=== PATIENT | female | born 1995 | race American Indian/Alaskan Native ===

== ENCOUNTER → 2019-09-13 10:24 | Outpatient (BNVA) | payer OTHER, SELFPAY | PROVIDERS: Family Provider Nurse Practitioner Family; PCP Nurse Practitioner Family; Visit Provider Nurse Practitioner | DX: N39.0 Urinary tract infection, site not specified (principal) | CPT/HCPCS: 81003 ==

== ENCOUNTER 2020-03-09 19:34 | Emergency (ER) | payer OTHER, SELFPAY ==
[2020-03-09 19:49] VITALS: BP 122/70; PULSE 87; RESP 14; TEMP 36.7; O2SAT 98; BMI 22.3
--- NOTE | 2020-03-09 21:41 | W.ED.SKABFB ---
HPI - Skin/Abscess/Foreign Bdy General: Chief complaint: Skin/Abscess/Foreign Body Stated complaint: rash Time Seen by Provider: 03/09/20 21:38 Source: patient and family Mode of arrival: ambulatory Limitations: no limitations History of Present Illness: HPI narrative: Patient is a 24-year-old female presents to ED today along with her mother for complaints of a bilateral lower extremity burning/pruritic rash that has been present over the past 3 weeks. Patient tells [place] poison bobbi. Patient was initially seen in urgent care facility and prescribed a 5-day course of non-tapering 40 mg prednisone. Patient believes she noticed some mild improvement however rash never fully subsided. She was seen again at an urgent care facility and prescribed the same 5-day course. Patient reports rash is still failed to improve so she returned yet again and was placed on cephalexin and mupirocin. Patient states she has been on the cephalexin for approximately 2 to 3 days. She is now complaining of a diffuse rash throughout her trunk/torso and face. She states she feels itchy all over . Patient denies any systemic complaints such as fevers/chills, body aches, malaise/fatigue, headache, neck pain. She has had no recent tick bites. Patient cannot think of any other environmental, household, chemical exposures. complaint: rash Onset (ago): week(s) Tetanus up to date: yes Location: generalized Severity: moderate Quality: burning and pruritic Pain Consistency: constant Relieving factors: none Exacerbating factors: none Associated symptoms: Deny chills, fever(s), nausea or vomiting Treatments prior to arrival: corticosteroid and antibiotic Review of Systems Const: Denies: fever(s), chills, body aches, fatigue or malaise Eyes: Denies: change in vision ENMT: Denies: throat pain Card: Denies: chest pain Resp: Denies: dyspnea GI: Denies: abdominal pain, nausea or vomiting Musc: Denies: neck pain or back pain Skin/Breast: Reports: rash and pruritus Neuro: Denies: headache(s), numbness in extremities, weakness in extremities or sensory changes PFS ED PFSH: Social History Smoking and tobacco status: never smoked Physical Exam Const: COMMON NORMALS: no acute distress, patient oriented x3, no limitations and alert ORIENTATION/CONSCIOUSNESS: Yes oriented to person, Yes oriented to place and Yes oriented to time HENMT: COMMON NORMALS: normocephalic and atraumatic HEAD & SCALP: normocephalic and atraumatic Eye: COMMON NORMALS: Equal, round and reactive pupils present, EOMs intact bilaterally, conjunctivae normal and no scleral icterus CONJUNCTIVA: Yes conjunctivae normal PUPIL: Yes Equal, round and reactive pupils present Resp: COMMON NORMALS: normal respiratory effort Extremity: COMMON NORMALS: normal to inspection and full ROM NARRATIVE EXTREMITY EXAM: see skin assessment GENERAL: Yes normal exam except as noted Neuro: COMMON NORMALS: patient oriented x3 SENSORIUM/ORIENTATION: Yes alert, Yes oriented to person, Yes oriented to place and Yes oriented to time Skin: OTHER: patient has several large erythematous edematous plaque like lesions throughout her LEs; some lesions appear older/dried while others appear more acute; some of the lesions do contain small vesicles; she has an area to her R ankle where an ankle bracelet was present and there is a clear delineation of where the rash did not affect this area; pt with diffuse papular rash to anterior truck/chest Course Vital Signs: Vital signs: Vital Signs Temperature 98.1 F 03/09/20 19:49 Pulse Rate 75 03/09/20 21:50 Respiratory Rate 15 03/09/20 21:50 Blood Pressure 133/91 03/09/20 21:50 Pulse Oximetry 97 03/09/20 21:50 MDM - Skin/Abscess/Foreign Bdy MDM Narrative: Medical decision making narrative: Will have patient discontinue cephalexin as I do not feel this is anything bacterial in nature and there are no signs of secondary infection at this time. Rash does look suspicious for a contact dermatitis. I will place patient on a long 15-day tapering steroid dose in hopes that this may help better than the 5-day course she has been on previously. With this being patient's fourth medical visit for the rash I will go ahead and place her information with case management try to get her set up with Dr. Connors, dermatology for her consultation. Return to ED precautions given. Discharge Plan Discharge Patient Disposition: Home Clinical Impression: Contact dermatitis and eczema due to plant Condition: Stable Prescriptions: New prednisone 10 mg tablet 10 mg PO DAILY 15 Days Qty: 45 RF: 0 Discontinued cephalexin 500 mg capsule 500 mg PO QID 7 Days Qty: 28 RF: 0 No Action mupirocin 2 % ointment 1 applic TOPICAL TID 7 Days Qty: 15 RF: 0 triamcinolone acetonide 0.1 % cream 1 applic TOPICAL BID Qty: 80 RF: 0 Discharge Orders: Discharge Order (Routine); Ordered 03/09/20 Ordered By: Anca Lima Referrals: Karely Corley FNP-C [Primary Care Provider] - Patient Instructions: Dermatitis (Contact), Contact Dermatitis (ED), Poison Bobbi (ED) Activity Restrictions/Additional Instructions: You may discontinue the cephalexin. We will place you on a 15-day steroid taper. As discussed I will place her information with case management so they may work on getting you an appointment with dermatology for further follow-up. Discharge Date/Time: 03/09/20 22:57 Coding Level of Care Code ED Automotive Welder for Kelli Boone
[2020-03-09 21:50] VITALS: BP 133/91; PULSE 75; RESP 15; O2SAT 97
[2020-03-09] MEDS: diphenhydrAMINE 50 mg/mL SDV 1mL IVP (22:11)
[2020-03-09] MEDS: famotidine 20 mg/2 mL INJ 40 MG IVP (22:12)
[2020-03-09 22:57] VITALS: BP 121/81; PULSE 88; RESP 16; O2SAT 97
--- NOTE | 2020-03-10 10:21 | PC.SOCIAL ---
Called patient regarding ED referral for Dermatology. Left message. Mother returned call Michelle and we discussed the current appt is for 05/12/2020 at 2:30 pm however, this nurse has asked that she be put on a wait list for any cancellations as well. Was also told that if patients provider can call to see if patient can get in sooner they may be able to move it up. Per Mother cant wait this long. [place] [facility] [place] to see if a provider to provider can be accomodated through them. She verbalized understanding and will see if she can reach out to them.
--- NOTE | 2020-03-20 14:11 | DCPLANNER ---
Patient had a follow up appointment scheduled for 03.12.20 after ED visit with dermatology - patient did attend appointment.
== END 2020-03-09 22:57 | disposition home or self-care (01) ==
PROVIDERS: Emergency Provider Physician Assistant; PCP Nurse Practitioner Family
DX: L25.5 Unspecified contact dermatitis due to plants, except food (principal)
CPT/HCPCS: 12345; 96374; 96375; 99281; 99283; J1200; J2930; J3490

== ENCOUNTER → 2020-03-12 16:01 | Outpatient (BNVA) | payer OTHER, SELFPAY | PROVIDERS: PCP Nurse Practitioner Family; Referring Provider Nurse Practitioner Family; Visit Provider Dermatology | DX: R21 Rash and other nonspecific skin eruption (principal); L30.2 Cutaneous autosensitization; L25.5 Unspecified contact dermatitis due to plants, except food | CPT/HCPCS: 99203; 99204 ==

== ENCOUNTER → 2020-03-13 11:38 | Outpatient (BNVA) | payer OTHER, SELFPAY | PROVIDERS: PCP Nurse Practitioner Family; Visit Provider Dermatology | DX: R21 Rash and other nonspecific skin eruption (principal); L30.2 Cutaneous autosensitization; L25.5 Unspecified contact dermatitis due to plants, except food; D48.9 Neoplasm of uncertain behavior, unspecified | CPT/HCPCS: 11104; 88304; 88305; 88312; 99203 ==

== ENCOUNTER → 2021-01-27 10:11 | Outpatient (BNVA) | payer OTHER, SELFPAY | PROVIDERS: PCP Nurse Practitioner Family; Visit Provider Registered Nurse Neonatal Intensive Care | DX: J02.9 Acute pharyngitis, unspecified (principal); H66.90 Otitis media, unspecified, unspecified ear | CPT/HCPCS: 87880 ==

== ENCOUNTER → 2023-01-11 18:06 | Outpatient (BNVA) | payer OTHER, SELFPAY | PROVIDERS: PCP Nurse Practitioner Family; Visit Provider Registered Nurse Neonatal Intensive Care | DX: J02.9 Acute pharyngitis, unspecified (principal) | CPT/HCPCS: 87880 ==

== ENCOUNTER → 2023-03-29 13:41 | Outpatient (BNVA) | payer OTHER, SELFPAY | PROVIDERS: PCP Nurse Practitioner Family; Visit Provider Nurse Practitioner | DX: J02.9 Acute pharyngitis, unspecified (principal); J03.80 Acute tonsillitis due to other specified organisms; B96.89 Other specified bacterial agents as the cause of diseases classified elsewhere | CPT/HCPCS: 87880 ==

== ENCOUNTER → 2023-07-14 09:15 | Outpatient (BNVA) | payer OTHER, SELFPAY | PROVIDERS: PCP Nurse Practitioner Family; Visit Provider Nurse Practitioner Women's Health | DX: Z32.00 Encounter for pregnancy test, result unknown (principal) | CPT/HCPCS: 81025 ==

== ENCOUNTER → 2023-07-27 10:22 | Outpatient (BNVA) | payer OTHER, MEDICAID, SELFPAY | PROVIDERS: PCP Nurse Practitioner Family; Visit Provider Obstetrics & Gynecology | DX: Z36.87 Encounter for antenatal screening for uncertain dates (principal) | CPT/HCPCS: 76817 ==

== ENCOUNTER → 2023-08-10 13:30 | Outpatient (BNVA) | payer OTHER, MEDICAID, SELFPAY | PROVIDERS: PCP Nurse Practitioner Family; Visit Provider Obstetrics & Gynecology | DX: Z34.90 Encounter for supervision of normal pregnancy, unspecified, unspecified trimester (principal) | CPT/HCPCS: 80307; 84315; 87086 ==

== ENCOUNTER → 2023-08-30 15:30 | Outpatient (BNVA) | payer OTHER, SELFPAY | PROVIDERS: PCP Nurse Practitioner Family; Visit Provider Obstetrics & Gynecology | DX: Z34.90 Encounter for supervision of normal pregnancy, unspecified, unspecified trimester (principal) | CPT/HCPCS: 85025; 86592; 86762; 86803; 86850; 86900; 87086; 87340; 87806 ==

== ENCOUNTER → 2023-10-31 14:33 | Outpatient (BNVA) | payer OTHER, SELFPAY | PROVIDERS: PCP Nurse Practitioner Family; Visit Provider Obstetrics & Gynecology | DX: Z34.80 Encounter for supervision of other normal pregnancy, unspecified trimester (principal) | CPT/HCPCS: 76805 ==

== ENCOUNTER → 2023-11-28 15:38 | Outpatient (BNVA) | payer OTHER, MEDICAID, SELFPAY | PROVIDERS: PCP Nurse Practitioner Family; Visit Provider Obstetrics & Gynecology | DX: Z34.82 Encounter for supervision of other normal pregnancy, second trimester (principal) | CPT/HCPCS: 76816; 84315 ==

== ENCOUNTER 2024-01-02 09:42 | Oncology outpatient (recurring) (ONCR) | payer OTHER, MEDICAID, SELFPAY ==
[2024-01-02 11:18] VITALS: BP 94/54; PULSE 76; RESP 16; TEMP 36.3; O2SAT 99
[2024-01-02] MEDS: rho(d) immune globulin 1,500 unit Syringe 1500 UNIT IM (11:24)
[2024-01-02 11:44] VITALS: BP 99/50; PULSE 76; RESP 18; TEMP 36.6; O2SAT 98
== END 2024-01-13 23:59 | disposition home or self-care (01) ==
PROVIDERS: PCP Nurse Practitioner Family; Visit Provider Family Medicine
DX: O26.893 Other specified pregnancy related conditions, third trimester (principal); Z67.91 Unspecified blood type, Rh negative
CPT/HCPCS: 36415; 86850; 86900; 96372; J2790

== ENCOUNTER 2024-02-26 10:13 | Outpatient (CLI) | payer OTHER, MEDICAID, SELFPAY ==
[2024-02-26 10:15] VITALS: BMI 27.8
[2024-02-26 10:31] VITALS: BP 132/79; PULSE 82
[2024-02-26 10:53] VITALS: BP 121/62; PULSE 71
[2024-02-26 11:08] VITALS: BP 139/78; PULSE 83
[2024-02-26 11:24] VITALS: BP 116/58; PULSE 75
[2024-02-26 11:26] LABS: Actim Prom Negative
== END 2024-02-26 11:35 | disposition home or self-care (01) ==
LOC: OPOB 10:17 → OBGYN 10:18
PROVIDERS: PCP Nurse Practitioner Family; Visit Provider Family Medicine
DX: O26.899 Other specified pregnancy related conditions, unspecified trimester (principal); Z3A.00 Weeks of gestation of pregnancy not specified; N89.8 Other specified noninflammatory disorders of vagina
CPT/HCPCS: 83986; 84112

== ENCOUNTER 2024-03-15 22:46 | Inpatient (IN) | payer OTHER, MEDICAID, SELFPAY ==
[2024-03-15 21:35] VITALS: BMI 27.9
[2024-03-15 21:50] VITALS: BP 121/69; PULSE 72
[2024-03-15 22:06] VITALS: BP 114/53; PULSE 71
[2024-03-15 22:11] VITALS: RESP 17
[2024-03-15 22:38] LABS: Basophils # 0.1 10^3/uL (0.0-0.1); Basophils % 0.4 %; Eosinophils # 0.1 10^3/uL (0.0-0.8); Eosinophils % 0.6 %; Hematocrit 31.7 % (36-47); Lymphocytes # 3.1 10^3/uL (0.8-4.8); Lymphocytes % 16.8 %; Mean Corpuscular HGB Conc 34.4 g/dL (30-55); Mean Corpuscular Hemoglobin 30.9 pg (27-33); Mean Corpuscular Volume 89.8 fl (85-98); Mean Platelet Volume 10.2 fL (7.4-10.4); Monocytes # 1.2 10^3/uL (0.2-0.9); Monocytes % 6.5 %; Neutrophils # 13.57 10^3/uL (1.8-7.7); Neutrophils % 74.3 %; Nucleated Red Blood Cells % 0 %; Platelet Count 322 10^3/cmm (157-399); Red Blood Count 3.53 10^6/uL (3.85-5.65); Red Cell Distribution Width 13.5 % (12.1-15.1); White Blood Count 18.28 10^3/uL (3.29-11.43)
[2024-03-15] MEDS: lactated ringers 1,000 ML 999 ML IV (22:59)
[2024-03-16] VITALS (70 sets, daily range): BP systolic 96–145; BP diastolic 48–86; PULSE 67–121; RESP 16; TEMP 36.2–38.2; O2SAT 97–100
[2024-03-16] MEDS: ROPivacaine premix 200 MG/100 ML PREMIX 13 MG EPIDURAL ×3 (00:32→10:56)
--- NOTE | 2024-03-16 00:37 | ANES.PREANE2 ---
Pre-Anesthetic Assessment Height/Weight: Height 1.63 m Weight 73.936 kg Pulse Resp BP Pulse Ox O2 Del Method 92 17 123/59 97 Room Air 03/16/24 00:30 03/15/24 22:11 03/16/24 00:27 03/16/24 00:30 03/15/24 22:41 Preop Diagnosis: IUP labor epidural Familial anesthetic complications: None Was Beta Killian taken within 24 hours: N/A Was Clonidine taken within 24 hours: N/A Last intake: 2099 Social No alcohol and No tobacco Exam alert, oriented x 3 and clear to auscultation bilaterally Airway Mallampati: Class II Dentition: full History/ROS No significant history except as noted Pulmonary None reported CV/HEM None reported None reported Hepatic None reported GI None reported Metabolic None reported Musc/skel None reported Neuropsych None reported Anesthetic Plan ASA status: 2 Anesthesia: Anesthesia Evaluation and Regional (specify below) (epidural ) Risk of > 500 ml blood loss (7ml/kg in children): Yes, adequate IV access and fluids planned Medications/Allergies Home Medications Medication Instructions Recorded Confirmed Last Taken Type vits no.126-ferrous fum 1 tab PO DAILY 08/10/23 02/26/24 02/26/24 History 28 mg iron-folic acid 800 mcg tablet (Classic ) Allergies Allergy/AdvReac Type Severity Reaction Status Date / Time cephalexin Allergy ALGY-Hives Verified 02/26/24 13:18 Current Medications Generic Name Dose Route Start Last Admin Trade Name Freq PRN Reason Stop Dose Admin Lactated Ringer's 1,000 mls @ 999 mls/hr 03/15/24 22:13 03/15/24 22:59 Lactated Ringers IV 999 mls/hr .Q1H1M PRN Administration See label comments [facility] Anesthesia Medical History Suspected viral infection of skin Family History Denies family history of Diabetes CAD (coronary artery disease) Cancer Social History Smoking and tobacco/nicotine status: never used tobacco/nicotine Quit status (tobacco/nicotine): not considering quitting Second hand smoke exposure: Yes Alcohol intake: current Alcohol intake frequency: few times a week Substance/Drug Use: never Female Reproductive History : 1 Data Anesthesia 03/15/24 22:30 Short CBC 03/15/24 Range/Units 22:30 WBC 18.28 H (3.29-11.43) 10^3/uL Hgb 10.90 L (11.27-16.99) g/dL Hct 31.7 L (36-47) % MCV 89.8 (85-98) fl Plt Count 322 (157-399) 10^3/cmm Neut % (Auto) 74.3 % Neut # (Auto) 13.57 H (1.8-7.7) 10^3/uL Blood Bank 03/15/24 22:30 Blood Type O Negative Rho(D) Type Rh negative Antibody Screen Positive Cardiac Studies: No Data to Display Anesthesia Procedures Epidural Time Out Performed: Yes Consents Signed: Procedure Consent Consent: requested by attending/covering physician, from patient, risks and benefits reviewed and patient agrees to proceed Lumbar Level: L4-L5 Epidural position: sitting Epidural procedure: sterile prep of area, 1% lidocaine to numb the area, 18 g needle, negative for paresthesia passed, neg for paresthesia, test dose given, 1.5% xylocaine 1:200k epi, 0.2% Ropivacaine bolus ml (5), placed PCEA, no systemic response, sterile dressing applied, L.U.D. no apparent complications and 0.2% Ropiavacaine @ mls/hr (13) Additional Comments: ELIZABETH 6cm, catheter easily threaded to 5 cm in the space. VS monitored throughout procedure and remained stable. Pt reporting decreased pain with contractions, educated on AQUACULTURE WORKER.
[2024-03-16] MEDS: dextrose 5%-lactated ringers 1,000 ML 125 ML IV ×2 (01:12→09:12)
[2024-03-16] MEDS: oxytocin 30 UNIT/500 ML BAG IV (07:47)
[2024-03-16] MEDS: acetaminophen 325 mg Tablet 650 MG PO (10:12)
--- NOTE | 2024-03-16 10:35 | PM.OPHPUD ---
Labor & Delivery H&P Update Date of Procedure: March 16, 2024 Date H&P Performed: 03/15/24 Changes to previous documentation: Spontaneous rupture membranes Admission Diagnosis: 28-year-old 1 at 39 weeks and 6 days presenting with spontaneous rupture membranes Preop diagnosis: IUP Planned procedure: Spontaneous vaginal delivery Other information: The patient is a 28-year-old female who had a relatively unremarkable . Initially, she started her care with Dr. Marie. She then transferred care to myself in the second trimester. At the time of arrival she felt she had rupture membranes. She was found to be nitrazine positive with grossly ruptured membranes. She was found to be dilated to 4 cm. Her blood type is O-. Her antibody screen is negative. She passed her glucose screen. She is GBS negative. Rubella immune. The remainder of her infectious disease profile is within normal limits. Related Problem List Diagnoses (1) 39 weeks gestation of : (2) Spontaneous rupture of membranes: A&P Assessment and plan (1) 39 weeks gestation of : I anticipate routine labor and spontaneous vaginal delivery. Status: Acute (2) Spontaneous rupture of membranes: Status: Acute
--- NOTE | 2024-03-16 14:34 | P.PCNOB_ITS ---
Delivery Note: Date of delivery: March 16, 2024 Pre-delivery diagnoses: 28-year-old 1 at 39 weeks estima makenzie gestational age in active labor Post-delivery diagnoses: Status post vacuum-assisted vaginal delivery Procedure: Vacuum-assisted vaginal delivery Delivering Physician: Carlo Malone Estimated blood loss (mL): 100 Pre-Delivery Course: The patient presented to the hospital with spontaneous rupture of membranes. She made some progress and was having consistent contractions. Her progress stalled for about 6 hours. Pitocin was added. She then progressed to complete without difficulty. She then pushed for over 2 hours. Delivery: DELIVERY: The patient progressed to complete without difficulty. The mother was wearing out, and the infant was continuing to have deep decelerations with each contraction. Some of the decelerations worse lasting longer. As result I elected to use a vacuum to assist in delivery. I used a vacuum for 3 different contractions. The vacuum was released in between contractions. After the third contraction, the baby was and I elected to no longer use the vacuum. She then pushed for several times after that and she delivered a male with a weight of 6 pounds 10 ounces with Apgars of 7, 8. The baby was delivered from the YUMI position. The was noted to have a double nuchal cord. The infant was unable to be delivered through the cords. The cords were also not reducible. As result the cord was clamped and cut at the perineum prior to delivery of the shoulders. After delivery of the baby, meconium was noted. The placenta and 3 vessel cord were delivered intact shortly thereafter. The perineum and vaginal vault were carefully examined. A first-degree left vaginal wall laceration was noted which was repaired with 3-0 Vicryl in a running stitch. Both the mother and the baby were in stable condition. Post-Delivery Status: Good History History History 1 Term Miscarriages/Ectopic Living Children A&P Assessment and plan (1) Vacuum-assisted vaginal delivery: I anticipate routine care. Coding Level of Care Code Acute Code for Chg Fwd Diagnoses Vacuum-assisted vaginal delivery Z37.9
[2024-03-16] MEDS: benzocaine-menthol 78 gm Canister 1 SPRAY TOPICAL (16:45)
[2024-03-16] MEDS: lanolin oint 7 gm 1 APPLIC TOPICAL (16:45)
[2024-03-16] MEDS: ibuprofen 800 mg tablet PO ×2 (16:45→21:26)
[2024-03-16] MEDS: docusate sodium 100 mg Capsule PO (17:21)
[2024-03-16] MEDS: HYDROcodone-acetaminophen 5-325 mg Tablet PO ×2 (17:21→23:44)
[2024-03-17 00:15] VITALS: BP 108/58; PULSE 63; RESP 16; O2SAT 98
[2024-03-17 03:52] VITALS: BP 112/72; PULSE 72; RESP 16; TEMP 36.8; O2SAT 98
[2024-03-17 04:55] LABS: Hematocrit 27.7 % (36-47); Mean Corpuscular HGB Conc 33.9 g/dL (30-55); Mean Corpuscular Hemoglobin 31.9 pg (27-33); Mean Corpuscular Volume 93.9 fl (85-98); Mean Platelet Volume 11.1 fL (7.4-10.4); Platelet Count 267 10^3/cmm (157-399); Red Blood Count 2.95 10^6/uL (3.85-5.65)
[2024-03-17 04:57] LABS: White Blood Count 45.27 10^3/uL (3.29-11.43)
[2024-03-17 07:51] VITALS: BP 95/46; PULSE 71; RESP 15; TEMP 36.6; O2SAT 99
[2024-03-17] MEDS: ibuprofen 800 mg tablet PO ×3 (08:32→20:16)
[2024-03-17] MEDS: PRENATAL VIT NO.130/IRON/FOLIC 1 EACH TABLET PO (08:32)
[2024-03-17] MEDS: docusate sodium 100 mg Capsule PO ×2 (08:32→18:17)
--- NOTE | 2024-03-17 11:24 | P.PN_ITS ---
ARCHITECTURAL PROJECT CAPTAIN Subjective 2 Subjective: Interval history: The patient has done very well. She has had no fevers since the baby delivery. She is having no other symptoms other than occasional cramping and appropriate bleeding. She is breast-feeding well. There are no other concerns. A routine CBC did demonstrate a white blood count of 45,000. It was 18,000 on admission. Labor: Station: -1 Amniotic Membrane Status: Ruptured Monitor Mode: External Contraction Pattern: Irregular Vitals/I&O/Wt Last Vital Signs Temp 97.8 F 03/17/24 07:51 Pulse 71 03/17/24 07:51 Resp 15 03/17/24 07:51 BP 95/46 03/17/24 07:51 Pulse Ox 99 03/17/24 07:51 O2 Del Method Room Air 03/17/24 07:51 03/16/24 03/17/24 03/17/24 22:59 06:59 14:59 Output Total 200 / 1100 Balance -200 / 3.067 Weight last 48 hrs Weight 163 lb Physical Exam 2 Narrative: The patient is alert. She appears comfortable. Her heart has a regular rate and rhythm with no murmurs appreciated. Lungs are clear to auscultation bilaterally. Her fundus is firm and below the umbilicus. Urinary Catheter Management: Ley Latex: Cath Placed During This Visit: yes Reason for Continuing Indwelling Catheter: Required Immobilization for Trauma or Surgery or Anesthesia Urinary Catheter Date of Insertion: 03/16/24 Urinary Catheter Time of Insertion: 01:25 Data 03/17/24 03:55 A&P Assessment and plan (1) Vacuum-assisted vaginal delivery: The patient is recovering appropriately. She has no concerns. Regardless her leukocytosis is pretty substantial. Out of an abundance of caution, we are going to keep her here until tomorrow and recheck a CBC on her to make sure that is trending downward and making sure that she is not showing any signs of infection. If her white blood cell count trends up, or she cells any other signs of infection we will consider adjusting her plan. (2) Leukocytosis: Attestations 2 Medical Necessity Statement*: Anticipate discharge tomorrow pending appropriate changes in her CBC and continuing to not demonstrate any symptoms or signs of infection Coding Level of Care Code Acute Code for Chg Fwd Diagnoses Vacuum-assisted vaginal delivery Z37.9 Leukocytosis D72.829
[2024-03-17 16:15] VITALS: BP 110/60; PULSE 68; TEMP 36.7; O2SAT 100
[2024-03-17 18:41] LABS: Basophils # 0.2 10^3/uL (0.0-0.1); Basophils % 0.5 %; Eosinophils # 0.2 10^3/uL (0.0-0.8); Eosinophils % 0.6 %; Hematocrit 27.3 % (36-47); Lymphocytes # 4.5 10^3/uL (0.8-4.8); Mean Corpuscular Hemoglobin 31.3 pg (27-33); Mean Corpuscular Volume 94.8 fl (85-98); Mean Platelet Volume 10.6 fL (7.4-10.4); Monocytes # 1.4 10^3/uL (0.2-0.9); Monocytes % 3.7 %; Neutrophils # 30.53 10^3/uL (1.8-7.7); Neutrophils % 81.7 %; Nucleated Red Blood Cells % 0 %; Platelet Count 281 10^3/cmm (157-399); Red Blood Count 2.88 10^6/uL (3.85-5.65); Red Cell Distribution Width 14.2 % (12.1-15.1)
[2024-03-17 18:44] LABS: White Blood Count 37.32 10^3/uL (3.29-11.43)
[2024-03-17 20:19] VITALS: BP 100/55; PULSE 72; RESP 16; TEMP 36.7; O2SAT 97
[2024-03-18 03:29] VITALS: BP 111/70; PULSE 63; RESP 16; TEMP 36.5
[2024-03-18] MEDS: docusate sodium 100 mg Capsule PO (08:42)
[2024-03-18] MEDS: ibuprofen 800 mg tablet PO (08:42)
[2024-03-18] MEDS: PRENATAL VIT NO.130/IRON/FOLIC 1 EACH TABLET PO (08:42)
--- NOTE | 2024-03-18 09:32 | P.DS_ITS ---
Discharge Providers ACTIVITY THERAPY SPECIALIST Date of Admission: 03/15/24 22:46 Date of Discharge: 03/18/24 Attending Provider at Admission: Carlo Malone MD Attending Provider at Discharge: Carlo Malone MD Primary Care Provider: Carlo Malone MD Diagnoses at Discharge Discharge Diagnosis (1) Vacuum-assisted vaginal delivery: Status: Acute (2) Leukocytosis: Status: Acute Reason for Visit Reason for Visit: Possible SROM Hospital Course Hospital Course The patient presented to the hospital with spontaneous rupture membranes. An epidural was placed. She made minimal change overnight and Pitocin was added to augment her labor. She did have a fever prior to delivery of her . Otherwise she had no other signs of infection. She had a vacuum-assisted vaginal delivery. Her course was otherwise unremarkable. Her white blood count did increase to 45,000 postdelivery. It then dropped to 37,000 later that day. She still demonstrated no signs of infection or illness after her delivery. Her bleeding was within normal limits. Her pain was well- controlled. She breast-fed well. There were no concerns Information Peripartum Data: Infant Delivery Method: Vaginal Physical Exam Narrative: The patient is alert. She appears comfortable. Her heart has a regular rate and rhythm with no murmurs appreciated. Lungs are clear to auscultation bilaterally. Her fundus is firm and below the umbilicus. Urinary Catheter Management: Ley Latex: Cath Placed During This Visit: yes Reason for Continuing Indwelling Catheter: Required Immobilization for Trauma or Surgery or Anesthesia Urinary Catheter Date of Insertion: 03/16/24 Urinary Catheter Time of Insertion: 01:25 History History History 1 Term Miscarriages/Ectopic Living Children Discharge Data Studies Completed and Pending Laboratory Results WBC 37.32 10^3/uL (3.29-11.43) H* 03/17/24 18:30 RBC 2.88 10^6/uL (3.85-5.65) L 03/17/24 18:30 Hgb 9.00 g/dL (11.27-16.99) L 03/17/24 18:30 Hct 27.3 % (36-47) L 03/17/24 18:30 MCV 94.8 fl (85-98) 03/17/24 18:30 MCH 31.3 pg (27-33) 03/17/24 18:30 MCHC 33.0 g/dL (30-55) 03/17/24 18:30 RDW 14.2 % (12.1-15.1) 03/17/24 18:30 Plt Count 281 10^3/cmm (157-399) 03/17/24 18:30 MPV 10.6 fL (7.4-10.4) H 03/17/24 18:30 Neut % (Auto) 81.7 % 03/17/24 18:30 Lymph % (Auto) 12.0 % 03/17/24 18:30 [place] % (Auto) 3.7 % 03/17/24 18:30 Eos % (Auto) 0.6 % 03/17/24 18:30 Baso % (Auto) 0.5 % 03/17/24 18:30 Neut # (Auto) 30.53 10^3/uL (1.8-7.7) H 03/17/24 18:30 Lymph # (Auto) 4.5 10^3/uL (0.8-4.8) 03/17/24 18:30 [place] # (Auto) 1.4 10^3/uL (0.2-0.9) H 03/17/24 18:30 Eos # (Auto) 0.2 10^3/uL (0.0-0.8) 03/17/24 18:30 Baso # (Auto) 0.2 10^3/uL (0.0-0.1) H 03/17/24 18:30 Nucleated RBC % (auto) 0 % 03/17/24 18:30 Nucleated RBCs # 0.0 /100WBC 03/17/24 18:30 Blood Type O Negative 03/15/24 22:30 Rho(D) Type Rh negative 03/15/24 22:30 Antibody Screen Positive 03/15/24 22:30 Antibody Identification Anti-D 03/15/24 22:30 Vitals Last Vital Signs Temp 97.7 F 03/18/24 03:29 Pulse 63 03/18/24 03:29 Resp 16 03/18/24 03:29 BP 111/70 03/18/24 03:29 Pulse Ox 97 03/17/24 20:19 O2 Del Method Room Air 03/18/24 03:29 Results Labs OB ([facility] [place]): Obstetrics US 11/28/23 Blood Type O Negative 03/15/24 Antibody Screen Positive 03/15/24 Hct 27.3 % (36-47) L 03/17/24 Hgb 9.00 g/dL (11.27-16.99) L 03/17/24 Rho(D) Type Rh negative 03/15/24 Plt Count 281 10^3/cmm (157-399) 03/17/24 Hep Bs Antigen Non-reactive (Nonreactive) 08/30/23 Hepatitis C Antibody Non-reactive (Nonreactive) 08/30/23 Rubella IgG Antibody 67.0 IU/mL (0.0-10.0) H 08/30/23 RPR Nonreactive (Nonreactive) 08/30/23 HIV 1&2 Ab & HIV 1 Ag Non-reactive (Non-Reactiv) 08/30/23 HCG, Qual Positive (Negative) H 07/14/23 Urine Opiates Screen Negative ng/mL (Negative) 08/10/23 Ur Barbiturates Screen Negative ng/mL (Negative) 08/10/23 Ur Phencyclidine Scrn Negative ng/mL (Negative) 08/10/23 Ur Amphetamines Screen Negative ng/mL (Negative) 08/10/23 U Benzodiazepines Scrn Negative ng/mL (Negative) 08/10/23 Urine Cocaine Screen Negative ng/mL (Negative) 08/10/23 U Marijuana (THC) Screen Negative ng/mL (Negative) 08/10/23 Micro Urine Specimen 08/30/23 Discharge Plan Discharge Patient Disposition: Home Condition: Stable Prescriptions: New ibuprofen 800 mg Tablet 800 mg PO TID Qty: 45 0RF Continued Classic 28 mg iron- 800 mcg tablet 1 tab PO DAILY Discharge Orders: Discharge Order (Routine); Ordered 03/18/24 Ordered By: Carlo Malone Referrals: Carlo Malone MD [Primary Care Provider] - 6 Weeks Discharge Diet: Usual diet Discharge Activity: Limit activity as instructed Patient Instructions: Depression (DC), Opioid Safety (DC), Preeclampsia and Eclampsia After Delivery (GEN), Hemorrhage (DC), OB Discharge Report, OB Food/Drug Interaction Guide, OB Care at Home, Opioid Safety, OB Vaginal Deliveries, Abnormal Bleeding Discharge Attestations ACTIVITY THERAPY SPECIALIST Time Spent in Discharge Care*: less than 30 min Coding Level of Care Code Acute Code for Chg Fwd Diagnoses Vacuum-assisted vaginal delivery Z37.9 Leukocytosis D72.829
[2024-03-18 10:19] VITALS: BP 110/67; PULSE 56; RESP 16; TEMP 36.7; O2SAT 97
--- NOTE | 2024-03-19 08:49 | ANE.PACU2 ---
Inpatient post-anesthesia follow up: Airway intact: Yes Vital signs: Temperature 98.1 F Pulse Rate 56 Respiratory Rate 16 Blood Pressure 110/67 Pulse Oximetry 97 Oxygen Delivery Me thod Room Air Oxygen Flow Rate Fraction of Inspir ed Oxygen Hydration adequate: Yes Nausea and vomiting: No Pain level: 2 Mental status: Baseline Epidural Start/End: Epidural Start Date: 03/16/24 Epidural Start Time: 00:00 Epidural End Date: 03/16/24 Epidural End Time: 14:30
== END 2024-03-18 10:19 | disposition home or self-care (01) | DRG 768 ==
LOC: OPOB 03-16 02:04 → OBGYN 03-16 02:04
PROVIDERS: Admitting Provider Family Medicine; PCP Family Medicine; Visit Provider Family Medicine
DX: O76 Abnormality in fetal heart rate and rhythm complicating labor and delivery (principal); O71.4 Obstetric high vaginal laceration alone; O69.81X0 Labor and delivery complicated by cord around neck, without compression, not applicable or unspecified; O77.0 Labor and delivery complicated by meconium in amniotic fluid; O75.89 Other specified complications of labor and delivery; D72.829 Elevated white blood cell count, unspecified; Z37.0 Single live birth; Z3A.39 39 weeks gestation of pregnancy
CPT/HCPCS: 36415; 51702; 59025; 59409; 80503; 83986; 85025; 85027; 86850; 86870; 86900; 99211; J2590; J2795; J7120; J7121

== ENCOUNTER → 2024-04-19 13:58 | Outpatient (BNVA) | payer MEDICAID, SELFPAY | PROVIDERS: PCP Family Medicine; Visit Provider Nurse Practitioner Family | DX: L25.9 Unspecified contact dermatitis, unspecified cause (principal) | CPT/HCPCS: 85025 ==

== ENCOUNTER → 2024-09-14 11:41 | Outpatient (BNVA) | payer MEDICAID, SELFPAY | PROVIDERS: PCP Family Medicine; Visit Provider Clinical Nurse Specialist Adult Health | DX: R50.9 Fever, unspecified (principal) | CPT/HCPCS: 87400 ==